=== PATIENT | female | born 1990 | race African-American/Black ===

== ENCOUNTER 2018-07-24 17:20 | Emergency (ER) | payer OTHER ==
[2018-07-24 17:37] VITALS: BP 101/47; PULSE 61; TEMP 98.5; BMI 24.3
--- NOTE | 2018-07-24 18:04 | PDOC ---
History of Present Illness - General Chief Complaint: Chest Pain Stated Complaint: CHEST PAIN Time Seen by Provider: 07/24/18 17:24 - History of Present Illness Initial Comments: 07/24/18 18:05 23-year-old female with seizure disorder presents for evaluation of chest pain 2 days. She states her chest pain started about 4 weeks ago she rested for about 3 weeks and restarted her activity she states she works out heavily. Last night her chest pain began again. Is nonradiating and is localized to the left side of her chest. She has no systemic symptoms. No radiation of symptoms. Past History - Past Medical History Allergies/Adverse Reactions: Allergies Allergy/AdvReac Type Severity Reaction Status Date / Time oxycaberpine Allergy Severe Uncoded 07/24/18 17:38 Home Medications: Ambulatory Orders Lacosamide [Vimpat] 100 mg PO BID #60 tab.ds.pk MDD 2 07/24/18 - Suicide/Smoking/Psychosocial Hx Smoking History: Never smoked Hx Alcohol Use: No Drug/Substance Use Hx: No Review of Systems - Review of Systems Cardiac (ROS): Yes: Chest Pain *Physical Exam - Vital Signs Last Vital Signs Temp Pulse Resp BP Pulse Ox 98.5 F 61 18 101/47 L 100 07/24/18 17:35 07/24/18 17:35 07/24/18 17:35 07/24/18 17:35 07/24/18 17:35 - Physical Exam Comments: 07/24/18 18:05 HEAD: NC/AT EYES: Conjuntiva clear Ears: Canals and TM's normal NOSE: No d/c THROAT: Moist mucous membrances, oral pharanx clear, uvula midline NECK: Supple without adenopathy CARDIAC: S1 S2 tenderness about the left costochondral junction in the areas of ribs 4 and 5 LUNGS: CTA Full and Equal breath sounds ABDOMEN: Soft NT ND MS: Full ROM in all joints without edema NEUROLOGIC: No gross sensory or motor deficits, NVID SKIN: Normal color and temperature no lesions or rashes Medical Decision Making - Medical Decision Making 07/24/18 18:04 This is a 27-year-old female with very reproducible chest pain. Her EKG was normal. As a courtesy I refilled her anti-seizure medication which was sent to the wrong pharmacy she has shown me proof of her medication. I will give her thoracic surgery follow-up for costochondritis. *DC/Admit/Observation/Transfer Diagnosis at time of Disposition: Costochondral joint sprain - Discharge Dispostion Disposition: HOME Condition at time of disposition: Stable Decision to Admit order: No - Referrals Referrals: Justin Yoder MD [Staff Physician] - - Patient Instructions Printed Discharge Instructions: Costochondritis, DI for Costochondritis Additional Instructions: You may take Tylenol and Motrin as directed for pain. Return to the emergency room for worsening symptoms. Your seizure medication was refilled follow-up with thoracic surgery for further evaluation and treatment options in 1-2 days. - Post Discharge Activity
--- NOTE | 2018-07-26 15:29 | EKG ---
Test Reason : Blood Pressure : / mmHG Vent. Rate : 056 BPM Atrial Rate : 056 BPM P-R Int : 186 ms QRS Dur : 086 ms QT Int : 414 ms P-R-T Axes : -17 051 025 degrees QTc Int : 399 ms SINUS BRADYCARDIA OTHERWISE NORMAL ECG NO PREVIOUS ECGS AVAILABLE Confirmed by MARAL LUND MD ([id number]) on 07/26/2018 3:28:56 PM Referred By: Confirmed By:MARAL LUND MD
== END 2018-07-24 20:26 | disposition home or self-care (01) ==
LOC: JERFT 17:20
DX: S23.41XA Sprain of ribs, initial encounter (principal); X50.0XXA Overexertion from strenuous movement or load, initial encounter; Y93.B9 Activity, other involving muscle strengthening exercises; Y92.89 Other specified places as the place of occurrence of the external cause; Y99.8 Other external cause status
CPT/HCPCS: 93005; 93010; 99281-25